=== PATIENT | female | born 1965 | race Caucasian/White ===

== ENCOUNTER → 2018-12-14 16:47 | Outpatient (CLI) | payer BC, SELFPAY ==
[2018-12-14 16:59] LABS: Red Blood Cells-Urine 0 SEEN /hpf (0-5); White Blood Cells 0 SEEN /hpf (0-5)
[2018-12-14 18:17] LABS: Color, Urine Yellow (Yellow); Glucose, Dipstick Normal (Normal); Ketone-Dipstick Negative (Negative); Leukocyte Esterase-Dipstick Negative /ul (Negative); Nitrite-Dipstick Negative (Negative); Occult Blood-Urine 10 /ul (Negative); Protein-Dipstick Negative (Negative); Specific Gravity, Urine 1.025 (1.002-1.030); Urine Bilirubin Dipstick Negative (Negative); Urine Clarity Clear (Clear); Urine Urobilinogen Normal (Normal)
[2018-12-14 18:51] LABS: Bacteria RARE /hpf (None Seen); Mucous, Urine 1+ /hpf (<or=2+); Squamous Epithelial Cells - UA 0-5 SEEN /hpf (5-10)
== END ==
PROVIDERS: Family Provider Family Medicine; PCP Family Medicine; Referring Provider Dermatology Pediatric Dermatology; Visit Provider Dermatology Pediatric Dermatology
DX: R31.9 Hematuria, unspecified (principal)
CPT/HCPCS: 81001; 87086; 87088

== ENCOUNTER → 2019-11-24 17:54 | Outpatient (CLI) | payer BC, SELFPAY ==
[2019-11-29 11:51] LABS: HPV APTIMA, High Risk Negative (Negative)
== END ==
PROVIDERS: PCP Family Medicine; Referring Provider Obstetrics & Gynecology; Visit Provider Obstetrics & Gynecology
DX: Z12.4 Encounter for screening for malignant neoplasm of cervix (principal)
CPT/HCPCS: 87624; 88175; G0145

== ENCOUNTER → 2019-11-25 07:26 | Outpatient (CLI) | payer BC, SELFPAY ==
--- NOTE | 2019-11-24 15:15 | EMB_PTH ---
PATIENT: CHARLOTTE SANTANA LOC: [facility] U#:[id number] AGE/SX: 59/F ROOM: RE11/25/[address]: Dr. Nicole Xie MD : 1965 BED: DIS: SPEC #: [id number] RECD: 11/24/19 17:57 STATUS: ELMA REQ #: [id number] SARA: 11/24/19 15:[address]: Nicole Waldron DEPT: SURGICAL PATHOLOGY RECD BY: Philipp Becerra ENTERED: 11/25/19 08:47 SP TYPE: ENDOM BX/C LU DR: Dr. Candida Sosa MD Tissues: Endometrium, NOS Procedures: Surgery Specimen Level IV HEADER OPERATION: Endometrial biopsy PRE-OP DIAGNOSIS: Menorrhagia TISSUE SUBMITTED: Endometrial biopsy MICROSCOPIC DIAGNOSIS Endometrial biopsy: Proliferative endometrium. SJ:noble 11/26/19 MICROSCOPIC DESCRIPTION Slides are reviewed. GROSS DESCRIPTION Received in fixative is one container labeled with the patient's name and designated EMB. The specimen consists of multiple fragments of hemorrhagic soft tissue that in aggregate measure 3 x 2.5 x 0.3 cm. The specimen is totally submitted in one cassette. / SJ:noble 11/25/19 TC:4 CPT: 57522
== END ==
PROVIDERS: PCP Family Medicine; Referring Provider Obstetrics & Gynecology; Visit Provider Obstetrics & Gynecology
DX: N92.0 Excessive and frequent menstruation with regular cycle (principal)
CPT/HCPCS: 88305

== ENCOUNTER → 2020-11-24 09:47 | Outpatient (CLI) | payer OTHER, SELFPAY ==
[2020-11-24 12:21] LABS: Absolute Neutrophil Count 4.2 X10^3/uL (2.0-7.7); Basophil# 0.03 X10^3/uL; Basophil% 0.4 % (0-1); Eosinophil# 0.13 X10^3/uL; Eosinophils% 1.9 % (0-5); Hematocrit 37.6 % (37-47); Hemoglobin 13.4 g/dL (12.0-15.0); Lymphocyte % 29.9 % (19-41); Mean Corp Hgb Conc 35.6 g/dL (32-36); Mean Corpuscular Hgb 34.2 pg (27.0-32.0); Mean Corpuscular Volume 95.9 fL (81-99); Mean Platelet Vol. 9.9 fl (6.2-12.0); Monocyte# 0.34 X10^3/uL; Monocyte% 5.1 % (0-10); NRBC Flagged by Analyzer 0 % (0-5); Neutrophil # 4.16 X10^3/uL (2.7-7.7); Neutrophil % 62.3 % (47-70); Platelet Count 206 K/mm3 (150-450); RBC Distribution Width CV 13.3 % (11.6-14.6); RBC Distribution Width SD 45.1 fl (35.1-43.9); Red Blood Count 3.92 M/mm3 (4.2-5.4); White Blood Count 6.7 K/mm3 (4.4-11.0)
[2020-11-24 12:25] LABS: Erythrocyte Sedimentation Rate 20 mm/hr (0-30)
[2020-11-24 12:43] LABS: ALB/GLOB Ratio 1.1 RATIO (0.9-2.4); AST(SGOT) 38 U/L (15-37); Alanine Aminotransfer ALT/SGPT 78 U/L (13-56); Albumin, Serum 4.1 g/dL (3.2-5.0); Alkaline Phosphatase 76 U/L (45-117); Anion Gap 8 (5-15); BUN 14 mg/dL (7-18); BUN/Creat Ratio 24.6 RATIO (10-20); CRP 5.74 mg/L (0.0-3.0); Calcium,Total 9.2 mg/dL (8.5-10.1); Chloride 108 mmol/L (98-107); Creatinine, Serum 0.57 mg/dL (0.55-1.02); EST Glomerular Filtration Rate 117 mL/min (>60); Est Glom Filt Rate - Afr Amer 142 mL/min (>60); Globulin 3.9 g/dL (2.2-4.2); Glucose 100 mg/dL (74-106); Potassium 3.9 mmol/L (3.5-5.1); Rheumatoid Factor < 10.0 IU/mL (<15); Sodium Level 138 mmol/L (136-145)
[2020-11-24 13:04] LABS: Hepatitis B Surface Antibody Reactive; Hepatitis B Surface Antigen Non-Reactive (Nonreactive); Hepatitis C Antibody Non-Reactive (Nonreactive)
[2020-11-26 15:15] LABS: ANTINUCLEAR ANTIBODIES DIRECT Negative (Negative)
[2020-11-27 15:53] LABS: CCP IgG Antibodies 5 units (0-19)
== END ==
PROVIDERS: PCP Family Medicine; Referring Provider Internal Medicine Rheumatology; Visit Provider Internal Medicine Rheumatology
DX: M06.4 Inflammatory polyarthropathy (principal); M79.7 Fibromyalgia; Q66.70 Congenital pes cavus, unspecified foot; F41.9 Anxiety disorder, unspecified; E78.5 Hyperlipidemia, unspecified; I10 Essential (primary) hypertension
CPT/HCPCS: 36415; 80053; 85025; 85652; 86038; 86140; 86200; 86431; 86706; 86803; 87340

== ENCOUNTER → 2022-01-22 | Outpatient (CLI) | payer OTHER, SELFPAY ==
[2022-01-22 18:42] LABS: LDH 195 U/L (84-246)
== END | disposition home or self-care (01) ==
PROVIDERS: PCP Family Medicine; Visit Provider Obstetrics & Gynecology
DX: D25.9 Leiomyoma of uterus, unspecified (principal)
CPT/HCPCS: 36415; 83615

== ENCOUNTER 2022-03-08 05:22 | Day surgery (SDC) | payer OTHER, SELFPAY ==
--- NOTE | 2022-03-05 12:05 | EKG12_ITS ---
Test Reason : PRE-OP Blood Pressure : / mmHG Vent. Rate : 064 BPM Atrial Rate : 064 BPM P-R Int : 138 ms QRS Dur : 070 ms QT Int : 402 ms P-R-T Axes : 024 000 004 degrees QTc Int : 414 ms Normal sinus rhythm Septal infarct , age undetermined , cannot be excluded Abnormal ECG Confirmed by LACHELLE ECHOLS, EMI ([id number]), script editor KWESI KOLB ([id number]) on 03/06/2022 10:02:28 AM Referred By: Nicole Xie Confirmed By:EMI LAROSE MD
[2022-03-05 12:15] LABS: Hematocrit 36.6 % (37-47); Hemoglobin 12.5 g/dL (12.0-15.0); Mean Corp Hgb Conc 34.2 g/dL (32-36); Mean Corpuscular Hgb 31.3 pg (27.0-32.0); Mean Corpuscular Volume 91.7 fL (81-99); Mean Platelet Vol. 9.5 fl (6.2-12.0); Platelet Count 244 K/mm3 (150-450); RBC Distribution Width CV 13.2 % (11.6-14.6); RBC Distribution Width SD 43.8 fl (35.1-43.9); Red Blood Count 3.99 M/mm3 (4.2-5.4); White Blood Count 6.4 K/mm3 (4.4-11.0)
[2022-03-05 12:33] LABS: Prothrombin Time (Protime)PT. 12.9 SECONDS (11.7-14.9)
[2022-03-05 12:34] LABS: Partial Thromboplast Time 27.8 Seconds (24.1-36.2)
[2022-03-05 13:00] LABS: Anion Gap 7 (5-15); BUN 13 mg/dL (7-18); BUN/Creat Ratio 22.5 RATIO (10-20); Calcium,Total 9.2 mg/dL (8.5-10.1); Chloride 106 mmol/L (98-107); Creatinine, Serum 0.58 mg/dL (0.55-1.02); EST Glomerular Filtration Rate 115 mL/min (>60); Est Glom Filt Rate - Afr Amer 139 mL/min (>60); Glucose 109 mg/dL (74-106); Potassium 3.9 mmol/L (3.5-5.1); Sodium Level 139 mmol/L (136-145)
[2022-03-05 13:09] LABS: Magnesium 1.9 mg/dL (1.6-2.6)
[2022-03-08] VITALS (13 sets, daily range): BP systolic 130–160; BP diastolic 79–101; PULSE 71–90; RESP 16–18; TEMP 36.2–37.2; O2SAT 93–100; BMI 41.0
[2022-03-08 06:20] LABS: Internal QC Validated? YES +Cl - CLEAR BKGD; Pregnancy, Urine Negative Negative
--- NOTE | 2022-03-08 06:29 | HP.PCM.OB_ITS ---
Assessment & Plan Assessment/Plan (1) Uterine fibroid:
--- NOTE | 2022-03-08 06:29 | PCM.HP.BLA ---
Assessment & Plan Assessment/Plan (1) Uterine fibroid:
--- NOTE | 2022-03-08 06:35 | HP.PCM.OB_ITS ---
HPI - General General Date of Admission: 03/08/22 Date of Service: 03/08/22 Chief Complaint: Pelvic pain HPI Narrative CHARLOTTE SANTANA, is a 56 F who presents for scheduled total laparoscopic hysterectomy, bilateral salpingo-oophorectomy for a fibroid uterus with pelvic pain. [facility] Medical History Alcohol use Anxiety Fatty liver High cholesterol History of Holter monitoring Hypertension Shortness of breath on exertion Home Medications atorvastatin 20 mg tablet 20 mg PO QHS 02/22/22 [History Last Taken Unknown] hydrochlorothiazide 25 mg tablet 25 mg PO DAILY 02/22/22 [History Last Taken Unknown] lisinopril 30 mg tablet 30 mg PO DAILY 02/22/22 [History Last Taken Unknown] multivitamin 1 cap PO DAILY 02/22/22 [History Last Taken Unknown] sertraline 100 mg tablet 100 mg PO DAILY 02/22/22 [History Last Taken Unknown] tumeric 100 mg-baylee 150 mg-olive 50 mg-oreg 150 mg-caprylate capsule 1 cap PO DAILY 02/22/22 [History Last Taken Unknown] Allergy/AdvReac Type Severity Reaction Status Date / Time No Known Allergies Allergy Verified 02/22/22 09:55 Surgical History Hx of section Social History Smoking Status: Never smoker Physical Exam Const alert, oriented x3 and no apparent distress HEENT normocephalic Resp normal respiratory effort, normal air movement and clear to auscultation bilaterally Cardio regular rate and regular rhythm GI normal to inspection, nondistended, normoactive bowel sounds, soft to palpation, non-tender and non-distended Labs Labs Labs: Blood Type A NEGATIVE Antibody Screen NEGATIVE Hct 36.6 % (37-47) L Hgb 12.5 g/dL (12.0-15.0) Hep Bs Antigen Non-Reactive (Nonreactive) Assessment & Plan (1) Uterine fibroid: PLAN: Proceed with TLH, BSO as planned
--- NOTE | 2022-03-08 06:41 | PCM.HP.BLA ---
History and Physical Date of Admission: 03/08/22 Surgical History and Physical Date: 03/05/2022 Name: MARCELA MOORE? ? ? Age:? 56 ? ? Date of : 1965 Marcela Moore, a 56 year old female 2? 0? 0? 1? 3, presents for Total laparoscopic hysterectomy, BSO on March 08, 2022 for symptomatic uterine fibroids with pelvic pain. ULTRASOUND 01/22/22 UTERUS: 12.3 x 6.8 x 7.6cm. fibroid measures 4 x 4.3 x 4cm. pedunculated fibroid measures 7.6 x 7.3 x 6.5cm. ENDOMETRIAL ECHO: 5.3mm. RIGHT OVARY: not seen. LEFT OVARY: not seen. BLADDER: No bladder masses visualized. FREE FLUID: NONE. OTHER PERTINENT FINDINGS: suboptimal views due to body habitus and fibroid uterus? Marcela is here for pre-op visit with her . PAT packet provided. Instructions and consents are reviewed and signed. LMT MEDICATIONS HISTORY: Patient is also taking:? 1. Zoloft 100 mg tablet, daily 2. atorvastatin 10 mg tablet, daily 3. hydrochlorothiazide 25 mg tablet, 1 po daily 4. lisinopril 30 mg tablet, daily ALLERGIES: No Known Drug Allergies Infections - Chicken pox Illnesses - Depression, HTN, Hyperlipidemia, Obesity Accidents - no injuries of consequence Hospitalizations - see surgery Review of Systems: GENERAL - Denies fever, or chills SKIN - Denies skin changes EYES - Denies visual changes EARS - Denies difficulty hearing NOSE - Denies nasal congestion or bleeding MOUTH - Denies sore throat or difficulty swallowing NECK - Denies pain or swelling RESPIRATORY - Denies shortness of breath or wheezing CARDIOVASCULAR - Denies palpitations or chest pain GASTROINTESTINAL - Denies nausea, vomiting, diarrhea, constipation GENITOURINARY - frequency, pressure and pelvic pain MUSCULOSKELETAL - Denies joint or muscle pain NEUROLOGICAL - Denies localized numbness or weakness PSYCHIATRIC - Denies depression or anxiety ENDOCRINE - Denies heat or cold intolerance, weight loss or gain HEMATO-IMMUNOLOGIC - Denies excesive bleeding with cuts SOCIAL HISTORY:? Alcohol Use - wine Smoking - denies smoking Diet - no special diet Lifestyle - remarried 11/10 for the third time Exercise - minimal Employer - [employer] Job Description - [place] [employer] Illicit Drug Use - denies use of street drugs Sexual Activity - Hours Worked - 40 hours per week Spouse-Sig Other Name - Anthony Spouse-Sig Other Occupation - [employer] Children Name(s) - Jose Cruz Murillo Luke Control - none-infertility??? FAMILY HISTORY: ? MENSTRUAL HISTORY: LMP Known?- Approximate-Month KnownAmount/Duration - -10, Regularity - Irregular, Frequency - monthly days, LMP - 08/06/21, Age Onset Menarche - 11 PAST PREGNANCIES: Total Pregnancies - 2; Full Term Pregnancies - 2; Premature - 0; Abortions, Induced - 0; Abortions, Spontaneous - 0; Ectopics - 0; Multiple Births - 1; Living Children - 3? SURGICAL HISTORY: 1.? C/S, 1987 ; - twins PHYSICAL EXAM BP- 134/84 ? Sitting, Right arm, regular cuff? ? Temp- 98.1 Taken Orally? ? Weight- 231.78950 lbs Height- 62.5? inch? BMI:[id number] CONSTITUTIONAL - NAD, well nourished, and well developed SKIN - No rash, lesions, or ulcers HEENT - Normocephalic, PERRLA, EOMI LUNGS - CTA x2 without wheezes, crackles or rales CARDIAC - Regular rate and rhythm without rubs, murmurs, or gallops BREAST - No dominant masses, no tenderness, no axillary adenopathy, no nipple discharge, no skin changes ABDOMEN - Without hepatosplenomegaly, distention, masses, rebound, or guarding; normal bowel sounds; no hernias EXTREMITIES - No edema or calf tenderness NEUROLOGICAL - normal gait, normal balance, normal motor PSYCHIATRIC - A and O to time, place, person, mood and affect ASSESSMENT/PLAN: 1. Leiomyoma Of Uterus, Unspecified and Pelvic And Perineal Pain ? Pelvic US with 7cm pedunculated fibroid and 4cm subserosal fibroid ? LDH wnl ? Plan for TLH, BSO ? Procedural r/b/i/a reviewed Assessment & Plan Assessment/Plan (1) Uterine fibroid: PLAN: Plan Reviewed with patient plan of care. She and given opportunity ask questions and questions answered to their satisfaction. Proceed as planned with TLH, BSO.
[2022-03-08] MEDS: Magnesium 2 GM IV (06:45)
[2022-03-08] MEDS: Lactated Ringers 1,000 ML 40 ML IV (06:46)
[2022-03-08] MEDS: Celecoxib 200 MG Capsule 400 MG PO (06:53)
[2022-03-08] MEDS: Acetaminophen 500 MG Tablet 1000 MG PO (06:54)
[2022-03-08] MEDS: Phenazopyridine 95 MG Tablet 190 MG PO (06:54)
[2022-03-08] MEDS: Gabapentin 600 MG Tablet PO (06:55)
[2022-03-08] MEDS: Enoxaparin 40 MG/0.4 ML Syringe SC (06:55)
[2022-03-08] MEDS: dexAMETHasone 10 MG/ML Vial 8 MG IV (06:55)
[2022-03-08] MEDS: Cefazolin 2 GM in 0.9% Normal Saline 100 ML IV (07:30)
--- NOTE | 2022-03-08 07:30 | HYST_PTH ---
PATIENT: CHARLOTTE SANTANA LOC: [facility] [place] U#:[id number] AGE/SX: 56/F ROOM: RE03/08/[address]: Dr. Nicole Xie MD : 1965 BED: DIS: 03/08/2022 SPEC #: [id number] RECD: 03/08/22 13:11 STATUS: ELMA LETTY #: [id number] SARA: 03/08/22 07:[address]: Nicole Waldron DEPT: SURGICAL PATHOLOGY RECD BY: Katelynn Brambila ENTERED: 03/08/22 13:26 SP TYPE: HYSTERECT OTHR DR: Dr. Candida Sosa MD Tissues: Uterus, NOS Procedures: Surgery Specimen Level V HEADER OPERATION: ERAS, hysterectomy, LAVH, BSO PRE-OP DIAGNOSIS: Uterine fibroid TISSUE SUBMITTED: Cervix, uterus, bilateral fallopian tubes and bilateral ovaries MICROSCOPIC DIAGNOSIS Cervix, uterus, bilateral fallopian tubes and bilateral ovaries, hysterectomy and bilateral salpingo-oophorectomy: Cervix - no pathologic diagnosis. See comment. Endometrium ? proliferative endometrium. Myometrium ? intramural leiomyomas (largest measuring 1.5 cm in greatest dimension). - Adenomyosis. Bilateral fallopian tubes - no pathologic diagnosis. Bilateral ovaries - no pathologic diagnosis. SJ:rg 03/12/2022 COMMENT Ectocervical epithelium is denuded in the sections examined. Multiple sections are examined. MICROSCOPIC DESCRIPTION Slides are reviewed. GROSS DESCRIPTION Received in fixative is one container labeled with the patient's name and designated uterus, cervix, bilateral fallopian tubes and bilateral ovaries. The specimen consists of a hysterectomy specimen, previously opened and consists of uterus with cervix and attached right fallopian tube and ovary and detached left fallopian tube and ovary and detached pieces of tissue consistent with portion of uterine pieces. The uterus with cervix and detached pieces of uterus weighs in aggregate 232 gm. The uterus with cervix measures 13.5 x 8 x 7 cm. Detached pieces of uterus measures in aggregate 7 x 6 x 2.5 cm. The endocervical canal measures 4 cm in length and the endocervical mucosa is alejandra, glistening and unremarkable. The endometrial cavity is distorted due to the previously opened uterus and measures approximately 6 cm in length and up to 4 cm in width. The endometrium is alejandra, glistening without any mass lesion and measures <0.1 cm in thickness. Sections of the uterine wall reveal two nodular masses measuring 0.4 and 1.5 cm in greatest dimension. Sections of these masses reveal alejandra whorled cut surfaces without areas of hemorrhage, necrosis or cystic degeneration. Sections of uterine wall also reveal a few ill-defined nodular masses. The uterine wall measures up to 3.5 cm in thickness. The right fallopian tube measures 4.5 cm in length and 0.5 cm in diameter. The fimbrial end is identified. Sections reveal unremarkable cut surfaces. No tubo-ovarian adhesions are noted. The right ovary measures 2 x 1.5 x 0.7 cm. Sections reveal unremarkable cut surfaces. The left fallopian tube measures 4 cm in length and 0.6 cm in diameter. It is similar appearance to right. The left ovary measures 2.5 x 1 x 1 cm. Sections reveal unremarkable cut surfaces. [place] sections are submitted in 11 cassettes as follows: 1 - anterior cervix, 2 - posterior cervix, 3 & 4 - anterior uterine wall, 5 & 6 - posterior uterine wall, 7 - nodular masses, 8 & 9 - ill-defined nodular masses, 10 - right fallopian tube and ovary, 11 - left fallopian tube and ovary. / FANI:noble 03/08/2022 More sections are submitted as follows: 12 & 13 ? cervix. / FANI:noble 03/11/2022 TC:1 CPT: 93447
[2022-03-08] MEDS: Vasopressin 20 UNITS/ML Vial (09:00)
[2022-03-08] MEDS: Bupivacaine Mpf 0.5% 30 ML VIAL (12:00)
[2022-03-08] MEDS: Estrogens,Conj. 1 Tube 1 DOSE (12:45)
[2022-03-08] MEDS: Clindamycin 900 MG/50 ML BAG 75 MG IV (12:45)
--- NOTE | 2022-03-08 13:03 | DCINST_ITS ---
Discharge Instructions Diet Discharge Diet: No restrictions Activity Discharge Activity: Return to Normal Activity May resume sexual activity in: 6 weeks Lifting Restrictions: 10 lb Dressing / Incision Call your doctor if your incision/area has: Continuous Slow Oozing, Sudden Increased Bleeding, Increased Pain/ Swelling, Increased Redness, Foul Smelling Discharge and Swelling at the incision site Call your doctor if you observe: Fever of 101 or Higher, Inability to urinate, Inability to have a bowel movement, Shortness of breath, Chest pain, Calf dis comfort and Uncontrolled pain Remove Dressing in: 2 days Cleanse incision/area with: Soap & Water Follow Up Care Please Follow Up With: Nicole Waldron MD When: 5-7 days Test Results: Test results from this visit will be discussed in further detail at your follow- up appointment, if applicable. Discharge Plan Admission Primary Reason for Your Visit: Hysterectomy, Removal of tubes and ovaries Attending Provider: Nicole Waldron Primary Care Provider: Candida Sosa Discharge Orders/Prescriptions Prescriptions: New oxycodone 5 mg capsule 5 mg PO Q6H PRN (Reason: pain) 7 Days Qty: 30 0RF ibuprofen 600 mg tablet 600 mg PO TID PRN (Reason: pain) Qty: 30 0RF Continued atorvastatin 20 mg tablet 20 mg PO QHS sertraline 100 mg tablet 100 mg PO DAILY lisinopril 30 mg tablet 30 mg PO DAILY hydrochlorothiazide 25 mg tablet 25 mg PO DAILY gxmtxsz-xetx-vmwpa-oreg-capryl 100 mg-150 mg- 50 mg-150 mg Capsule 1 cap PO DAILY multivitamin Capsule 1 cap PO DAILY Other Ambulatory Orders: 12 Lead EKG (Routine) Timeframe: [id number] Location: None Selected Ordered By: Dr. Morris Johnson Referrals / Follow Up: Candida Sosa MD [Primary Care Provider] - Disposition Disposition (needs filled in before D/C Order can be placed): Home, Self Care
[2022-03-08] MEDS: Ipratropium/Albuterol Sulfate 3 ML AMPUL.NEB INHALATION ×2 (13:34→13:36)
--- NOTE | 2022-03-08 13:43 | SUR.PHASEI ---
UPON ARRIVAL TO PACU PTS FACE WAS VERY RED AND SHE SHE EXP WHEEZES THAT SOUND LIKE IT IS COMING FROM THROAT AREA, LUNGS CLEAR. DR SOL IN TO SEE PATIENT, ORDERED BENADRYL, PEPCID AND DUONEB.
[2022-03-08] MEDS: Famotidine 200 MG/20 ML MDV 20 MG in 0.9% Normal Saline (Pres. free 8 ML 300 MG IV (13:48)
[2022-03-08] MEDS: Racepinephrine HCl 0.5 ML VIAL.NEB. INHALATION (13:51)
--- NOTE | 2022-03-08 14:23 | PCM.OPRPT ---
Problems Associated Problem List Diagnoses (1) Uterine fibroid: (2) History of hysterectomy with bilateral oophorectomy: Report of Operation Date of Procedure: 03/08/22 Pre-Operative Diagnosis: 1. Symptomatic uterine fibroids 2. Pelvic pain Post-Operative Diagnosis: 1. Symptomatic uterine fibroids 2. Pelvic pain Surgery/Procedure Performed:: 1. Laparoscopic assisted vaginal hysterectomy 2. Bilateral salpingo-oophorectomy Description of Surgical Findings:: 14w size fibroid uterus, normal tubes and ovaries Surgeon: Nicole Waldron open pit quarry supervisor: Staci Henedrson Type of Anesthesia: General Anesthesiologist: Houston Garcia Specimen's removed: uterus, cervix, tubes and ovaries Estimated Blood Loss (mL): 400 ml Fluids Replaced: 3700 ml Description of Procedure: Patient was brought to the operating room and sign in performed. She was placed dorsal supine and induced under general anesthesia. She was repositioned into dorsal lithotomy and examination under anesthesia. Patient was noted to have generalized urticaria during this time that was attributed to Ancef, the infusion however was completed by then. She was given IV Benadryl and her vitals remained stable with further management from anesthesiology. The abdomen and perineum were prepped and draped in sterile fashion. The patient was positioned into high lithotomy and a tejeda catheter placed. A speculum was placed vaginal and the cervix grasped with a single tooth tenaculum. Dilute vasopressin was injected into the cervix. The uterus sounded to 12cm. The Advincula uterine manipulate was placed and secured to the cervix with two 0 Vicryl sutures. The speculum was removed and the patient was placed into low lithotomy. Attention was turned to the abdomen. Half percent marcaine was injected at the inferior umbilicus and a 1cm incision made with the scalpel. The Veress needle was introduced abdominally with successful hang drop and no aspirate however abdominal entry pressures read high. Thus, direct laparoscopic entry was performed confirming entry into the abdominal cavity. The abdomen was insufflated to 15mmHg. Bilateral TAP blocks were performed with the marcaine under laparoscopic guidance the abdomen was inspected. Two additional ports were placed in the right and left lower quadrants at those sites. Patient was placed into Trendelenberg and the pelvis further explored. The uterus was approximately 14 weeks size with a posterior leftward fibroid. A fourth suprapubic port was placed for further accessibility. The left round ligament was clamped, electrocoagulated and cut using the Ligasure device. The anterior left broad ligament was opened with creation of the bladder flap. In order to reduce the bulk of the specimen the left utero-ovarian ligament was clamped, electrocoagulated and cut with the plan to retrieve the left adnexa later. The left uterine vessels were skeletonize and the uterine vessels were electrocoagulated.? The right round ligament was clamped, electrocoagulated and cut and the anterior right broad ligament opened with completion of the right bladder flap. The right infundibulopelvic ligament was isolated and the right ureter was identified transperitoneally. The right infundibulpelvic ligament was clamped, electrocoagulated and cut with right salpingo-oophorectomy performed. The bladder flap was further developed and the end-pelvic fascia identified. The right uterine vessels were electrocoagulated and cut. The left uterine vessels were again electrocoagulated and cut. The vaginal balloon was inflated and colpotomy performed cutting with monopoly jose antonio utilizing electrocoagulation as needed for hemostasis. The bulk of the uterus and the bowel however prevented adequate visualization to perform the posterior colpotomy in full and along the right uterosacral ligament. Thus, the abdomen was desufflated and attention turned to the vagina for completion of the procedure.? The patient was removed from steep Trendelenberg and repositioned into high lithotomy and the balloon deflated and the vaginal manipulator removed. A weighted speculum was placed vaginally and the cervix was grasped with a single tooth tenaculum. The posterior colpotomy was made with curved Mayos. The right uterosacral ligament was Ingrid clamped, cut and suture ligated with 0-Vicryl suture with subsequent descent of the uterus. A long weight speculum was placed into the culdesac. The cervix was bivalved and uterus was decompressed via serial coring due to tissue dystocia with delivery of the uterus and right adnexa. The vaginal cuff and peritoneum was reapproximated with serial 0 Vicryl figure of eight sutures.? The patient was placed into low lithotomy and attention again turned to the abdomen with Trendelenberg employed. The abdomen was re-insufflated and laparoscopy performed. Small capillary bleeding was controlled with electrocoagulation along the right peritoneal edge. The left infundibulopelvic ligament was isolated and the left tube, ovary and ureter identified. The ligament was clamped, electrocoagulated and cut with removal of the left tube and ovarian via an abdominal incision. Marychuy was placed along the vaginal cuff for continued hemostasis. The procedure was complete. The abdomen was desufflated and the ports removed. The skin was closed by the GENERAL HANDLING SUPERVISOR under my supervision using 4-0 Monocryl. Incisions were covered with Steristrips and an Opsite dressing. The tejeda catheter was removed from the bladder and premarin applied to the vagina and cuff. The patient was placed into dorsal supine, awakened, extubated and transferred to the recovery room. Sponge, needle and instrument counts were correct. ? Complications Urticaria developed following IV Ancef infusion Admit VTE Documentation VTE Present on Admission: No VTE Mechan Device Prophylaxis: SCD's VTE Pharm Prophylaxis ordered?: Yes
[2022-03-08 15:10] LABS: Bedside Glucose 115 mg/dL (74-106)
== END 2022-03-08 17:57 | disposition home or self-care (01) ==
LOC: SDC 05:22 → AC 05:23
PROVIDERS: Anesthesiology; PCP Family Medicine; Referring Provider Obstetrics & Gynecology; Visit Provider Obstetrics & Gynecology
PROC: 0UT94ZZ Resection of Uterus, Percutaneous Endoscopic Approach (ICD-10-PCS; CPT 58552; principal; 2022-03-08 07:10)
DX: D25.1 Intramural leiomyoma of uterus (principal); Z68.41 Body mass index [BMI] 40.0-44.9, adult; N80.0 Endometriosis of uterus; I10 Essential (primary) hypertension; E78.5 Hyperlipidemia, unspecified; F32.A Depression, unspecified; K76.0 Fatty (change of) liver, not elsewhere classified; E66.9 Obesity, unspecified; Z79.899 Other long term (current) drug therapy
CPT/HCPCS: 58552; 36415; 80048; 81025; 82962; 83735; 85027; 85610; 85730; 86850; 86900; 86901; 88307; 93005; 94640; J7120; A4216; J2405; J3490

== ENCOUNTER → 2022-04-10 | Outpatient (CLI) | payer OTHER, SELFPAY ==
[2022-04-10 12:50] LABS: AST(SGOT) 25 U/L (15-37); Alanine Aminotransfer ALT/SGPT 44 U/L (13-56); Albumin, Serum 3.9 g/dL (3.2-5.0); Alkaline Phosphatase 80 U/L (45-117); Anion Gap 10 (5-15); BUN 19 mg/dL (7-18); BUN/Creat Ratio 27.2 RATIO (10-20); Calcium,Total 9.9 mg/dL (8.5-10.1); Chloride 105 mmol/L (98-107); EST Glomerular Filtration Rate 92 mL/min (>60); Est Glom Filt Rate - Afr Amer 111 mL/min (>60); Estradiol 14.5 pg/mL; Ferritin 50 ng/mL (8-252); Glucose 122 mg/dL (74-106); Potassium 3.9 mmol/L (3.5-5.1); Protein, Total 7.9 g/dL (6.4-8.2); Sodium Level 138 mmol/L (136-145)
[2022-04-10 12:51] LABS: Hematocrit 36.9 % (37-47); Hemoglobin 12.6 g/dL (12.0-15.0); Mean Corp Hgb Conc 34.1 g/dL (32-36); Mean Corpuscular Hgb 32.3 pg (27.0-32.0); Mean Corpuscular Volume 94.6 fL (81-99); Mean Platelet Vol. 10.3 fl (6.2-12.0); Platelet Count 253 K/mm3 (150-450); RBC Distribution Width CV 13.5 % (11.6-14.6); RBC Distribution Width SD 46.4 fl (35.1-43.9); White Blood Count 6.9 K/mm3 (4.4-11.0)
[2022-04-10 12:54] LABS: Progesterone Level < 0.21 ng/mL (See Comment)
[2022-04-10 12:55] LABS: Vitamin B12 > 2000 pg/mL (211-911)
[2022-04-15 12:07] LABS: Testosterone, % Free 2.48 % (0.50-2.80); Testosterone, Free < 0.07 ng/dL (0.10-0.85); Testosterone, Total < 3 ng/dL (4-50)
== END | disposition home or self-care (01) ==
LOC: WOBLAB 10:24
PROVIDERS: PCP Family Medicine; Visit Provider Obstetrics & Gynecology
DX: R53.83 Other fatigue (principal)
CPT/HCPCS: 36415; 80053; 82607; 82670; 82728; 84144; 84270; 84402; 84403; 85027